=== PATIENT | male | born 1950 | race Caucasian/White ===

== ENCOUNTER → 2022-01-03 | Day surgery (SDC) | payer OTHER ==
[~2022-01-03] VITALS: Ht 180.3 cm; Wt 86.6 kg
[~2022-01-03] MED LIST: ACID REDUCER10 MG PO; CO Q10100 MG PO; DITROPAN5 MG PO; ECOTRIN81 MG PO; FLOMAX0.4 MG PO; LIPITOR20 MG PO; NORVASC 10MG TA10 MG PO; PROSCAR5 MG PO; VITAMIN D325 MC1 PO
== END | disposition home or self-care (01) ==
LOC: FAS 06:15
DX: Z12.11 Encounter for screening for malignant neoplasm of colon (principal); D12.2 Benign neoplasm of ascending colon; D12.3 Benign neoplasm of transverse colon; K57.30 Diverticulosis of large intestine without perforation or abscess without bleeding; K64.4 Residual hemorrhoidal skin tags; Z86.010 Personal history of colon polyps; Z80.0 Family history of malignant neoplasm of digestive organs; Z79.82 Long term (current) use of aspirin; Z87.891 Personal history of nicotine dependence
CPT/HCPCS: J2250; J2704; J7120